=== PATIENT | male | born 1935 | race Caucasian/White ===

== ENCOUNTER 2016-09-07 11:22 | Emergency (ER) | payer OTHER ==
[~2016-09-07 11:22] MED LIST: LABETALOL IV ONE
[2016-09-07] MEDS ORDERED: QUELICIN ONE ×2 (11:24→13:06)
[2016-09-07] MEDS ORDERED: QUELICIN IV ONE (11:25)
[2016-09-07] MEDS ORDERED: AMIDATE IV ONE (11:25)
[2016-09-07] MEDS ORDERED: LABETALOL ONE (11:25)
[2016-09-07] MEDS ORDERED: DIPRIVAN 1% 100 ML ONE (11:35)
--- NOTE | 2016-09-07 11:50 | PROVIDER DOCUMENTATION ---
HPI-Critical Care - General Chief Complaint: Unresponsive Stated Complaint: DECREASE LOC Time Seen by Provider: 09/07/16 11:22 Patient arrived via EMS?: Yes Source: EMS Unable to obtain history due to:: other (pt condition, AMS) Allergies/Adverse Reactions: Allergies Allergy/AdvReac Type Severity Reaction Status Date / Time Unable to Assess Allergy Unverified 09/07/16 11:38 - History of Present Illness-Critical Care Nature of Presenting Problem: patient is a 80 y/o M that presents to the ER via EMS for unresponsiveness. 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 He then went unresponsive. EMS arrived and patient was still unresponsive. EMS attempted to intubated but patient had gag reflex. patient was given 4 mg of Narcan with no response. Patient arrives to the ER in serve distress. Severity in ED: reports: severe Onset/Duration: reports: abrupt, just prior to arrival Timing: reports: still present, constant EMS Initial Findings:: unresponsive, decreased respirations Pre-hospital Treatment: Initiated oxygen, Initiated BVM, Initiated IV fluids Associated Symptoms: denies: diarrhea, nausea, vomiting Loss of Consciousness: still comatose Review of Systems - Adult - REVIEW OF SYSTEMS - ADULT ROS:: unobtainable per condition Constitutional: reports: see HPI All Other Systems: Reviewed and Negative Past History - Adult - PAST MEDICAL HISTORY-ADULT Review of Records: reports: Nursing Assessment Review (unable to obtain due to patient condition), Medications Reviewed Physical Exam-General - PHYSICAL EXAM-ADULT Exam Limited by: patient condition Initial Vital Signs Reviewed: Yes - CONSTITUTIONAL General Appearance: severe distress, other (unresponsive) - EYES Eyes: other (pinpoint pupils) - HEAD, EARS, NOSE, MOUTH & THROAT HENMT: normocephalic/atraumatic, other (dry oral mucosa, no signs of vomit) - RESPIRATORY Respiratory: respiratory distress (severe), decreased rate - CARDIOVASCULAR Cardiovascular: no murmur, bradycardia - GASTROINTESTINAL (ABDOMEN) Abdominal Exam: soft. negative: distended - MUSCULOSKELETAL Extremity: no pedal edema, normal capillary refill - SKIN Integumentary: negative: cyanosis, ecchymosis, rash - PSYCHIATRIC Psych/Mental Status: other (unresponsive) Progress - PLAN OF CARE/RESULTS Progress/Plan/Lab Results: patient arrived to bed 13. elected to intubate patient to maintain patent airway. Patient was successful intubated x 1 attempt. patient was given 20 mg of labetol in which systolic BP is still in 230s. Patient will be transported to CT scan. He will be started on Nipride drip 1201-Patient will be switch to Cardene drip instead of Nipride drip due to cerebral hemorrhage and systolic blood pressure. Dr. Griffiths became aware of patient's bp and reviewed CT scan Vital Signs Temp Pulse Resp BP Pulse Ox 09/07/16 11:33 76 22 240/148 100 09/07/16 11:20 95.7 F L 72 12 217/124 100 Unable to Assess Allergy (Unverified 09/07/16 11:38) , I&O 09/06/16 09/07/16 09/08/16 06:59 06:59 06:59 Output Total 20 Balance -20 Laboratory 09/07/16 11:41 Specimen Type ARTERIAL Sample Site R RADIAL pH 7.47 H pCO2 31 L pO2 516 H HCO3 24.7 Base Excess -0.2 Oxyhemoglobin 96.3 ABG O2 Sat (Calculated) 20.8 ABG O2 Saturation 100.5 H ABG Carboxyhemoglobin 2.00 ABG Methemoglobin 2.2 H Mac Test YES A-a O2 Difference 158.0 Total Hemoglobin 14.3 Lactate 1.60 Blood Gas Modality AMBU BAG FiO2 % 100.0 Orders Category Date Time Status Cardiac Monitoring DIRECTED Care 09/07/16 11:26 Active Finger Stick Blood Sugar (ED) DIRECTED Care 09/07/16 11:26 Active Finger Stick Blood Sugar (ED) DIRECTED Care 09/07/16 11:27 Active Green Cath Insertion ORDERED Care 09/07/16 11:27 Active Oxygen Therapy- ED Nursing DIRECTED Care 09/07/16 11:26 Active Saline Loc NOW Care 09/07/16 11:26 Active Vital Signs Order Q15M Care 09/07/16 11:27 Active CHEST-PORTABLE [RAD] Stat Exams 09/07/16 11:26 Draft HEAD/C-SPINE W/O CONTRAST [CT] Stat Exams 09/07/16 11:27 Ordered ABG [RESP] Routine Lab 09/07/16 11:41 Completed ALCOHOL BLOOD Stat Lab 09/07/16 11:25 Received CBC WITH ELECTRONIC DIFF [HEME] Stat Lab 09/07/16 11:25 Results CK PROFILE [SP CHEM] Stat Lab 09/07/16 11:25 Received COMPREHENSIVE METABOLIC PANEL [CHEM] Stat Lab 09/07/16 11:25 Received LACTATE, PLASMA [CHEM] Stat Lab 09/07/16 11:26 Uncollected PROTIME WITH INR [COAG] Stat Lab 09/07/16 11:25 Received PTT [COAG] Stat Lab 09/07/16 11:25 Received TROPONIN T Stat Lab 09/07/16 11:25 Received URINALYSIS W/POSS RFLX CULT [URINALYSIS] Stat Lab 09/07/16 11:26 Uncollected URINE DRUG SCREEN Stat Lab 09/07/16 11:26 Uncollected Dextrose 5%-Water Inj [D5w] 250 ml Med 09/07/16 12:00 Active Nitroprusside [Nipride] 50 mg IV As Directed Nicardipine 40 mg/Ns [Cardene 40 mg/Ns] 200 ml Med 09/07/16 12:00 Active IV As Directed Pulse Oximetry Stat Oth 09/07/16 11:26 Active EKG [EKG] Stat Ther 09/07/16 11:26 Ordered 1208-Family wants patient to be a full code and to have everything done for him. - CT/MRI 1 CT Study: Cervical Spine, Head Impression: Abnormal CT Results: large cerebral bleed with shift, bleed into ventricles - CONSULTS/PCP/HOSPITALIST Notification #1 *Consult/PCP/Hospitalist*: [facility] ( ) Time Discussed: 12:11 Reason/Comments: Cerebral Hemorrhage Consult Disposition: other (Transfer to ER) Procedures - INTUBATION Time of Intubation: 11:37 Mallampati Class: 1 Intubation Method: orotracheal Equipment: ETT Tube Size (cm): 8.0 Pretreated with 100% Oxygen?: Yes Breath Sounds after Intubation: equal ETT Primary Tube Confirmation: Capnometry CO2 Change, Direct Visualization, Chest Rise and Fall Intubation Complications: no complications Vent Settings: See Respiratory Therapy Notes Departure - Departure Time of Disposition Order: 12:14 DIAGNOSIS: Cerebral hemorrhage, acute, Unresponsiveness Disposition: [place] [id number] Certified Medical Emergency: Emergent Condition: Critical - Critical Care Note Total Time (mins): 60 Critical Care Statement: This patient required my direct personal management to treat or rule out processes, the absence of which, could potentiallly result in sudden, clinically significant life or limb threatening deterioration. Attestation - Scribe Verification/Attestation Scribe:: Antony Sanz Acting as Scribe for:: Prince Rangel Scribe documention review:: This chart was documented by a scribe and accurately reflects the service the provider performed and the decisions made by the provider. Physician Attestation - Physician Attestation I, the provider, attest to the following statement:: Prince Rangel Physician documentation Attestation:: This documentation recorded by the scribe accurately reflects the service I personally performed and the decisions made by me.
[2016-09-07 11:51] LABS: ALLEN TEST YES; BE -0.2 mmoll (-3.0-3.0); BLOOD TYPE ARTERIAL; DRAW SITE R RADIAL; METHB 2.2 % (0.0-1.5); O2(CT) 20.8 mL/dL (15.0-23.0); PCO2(98.6) 31 mmHg (35-45); PO2(98.6) 516 mmHg (60-100); SAMPLE BLOOD; SAO2 100.5 % (95.0-100.0); THB 14.3 g/dL (11.5-17.4); pH(98.6) 7.47 (7.35-7.45)
[2016-09-07 11:52] LABS: MODALITY AMBU BAG
--- NOTE | 2016-09-07 11:58 | Diag Imaging Result Document ---
PROCEDURE NAME: CHEST-PORTABLE - 09/07/2016 PORTABLE CHEST: COMPARISON: 05/28/2016. FINDINGS: There is an endotracheal tube with its tip located approximately 4 cm above the delfino. The lungs are well expanded. The heart is not enlarged. The vessels are not distended. No pneumonia. No pleural effusions identified. There is a granuloma in the right base and there are calcified right hilar lymph nodes. IMPRESSION: 1. Endotracheal tube in good position. 2. Negative chest.
[2016-09-07] MEDS ORDERED: NIPRIDE 50 MG in D5W 250 ML IV SCH (12:00)
[2016-09-07] MEDS ORDERED: NS IV SCH (12:00)
[2016-09-07] MEDS ORDERED: CARDENE IV SCH (12:00)
[2016-09-07 12:07] LABS: MANUAL DIFF NEEDED? NO
--- NOTE | 2016-09-07 12:32 | Diag Imaging Result Document ---
PROCEDURE NAME: HEAD/C-SPINE W/O CONTRAST - 09/07/2016 CT BRAIN AND CERVICAL SPINE WITHOUT CONTRAST: CT BRAIN WITHOUT: FINDINGS: There is a large parenchymal hemorrhage which appears to be centered in the left cerebellum measuring approximately 3.9 x 6.5 cm. This has bled into the ventricular system. There is mild hydrocephalus as well as atrophy. Mild microvascular ischemic changes. No skull fracture. No sinus opacification. IMPRESSION: Large left cerebellar parenchymal hemorrhage with extension into the ventricular system with mild hydrocephalus. A preliminary report was immediately called to Dr. Rangel in the Emergency Room at 12:[address] CERVICAL SPINE WITHOUT CONTRAST: FINDINGS: There is mild scoliosis. Moderate degenerative bone spurring throughout the cervical spine. No subluxation. No fracture. IMPRESSION: No acute bony injury.
[2016-09-07 12:38] LABS: URINE CULTURE NEEDED? NO; URINE MICRO REVIEW NEEDED? NO; URINE SOURCE CATH
[2016-09-07 12:44] LABS: EOS# 0.07 X1000 (0.0-0.7); EOS% 1.1 % (0.0-10.0); HEMATOCRIT 39.7 % (42.0-52.0); HEMOGLOBIN 13.6 g/dL (14.0-18.0); LYMPH% 15.1 % (20.5-51.1); MCH 29.2 PG (27-31); MCHC 34.3 g/dL (33-37); MCV 85.2 FL (81-99); MONO# 0.39 X1000 (0.11-0.59); MONO% 5.9 % (1.7-9.3); MPV 9.7 FL (7.4-10.4); NEUT% 77.9 % (42.2-75.2); PLT 161 X1000 (130-400); RBC 4.66 XMIL (4.7-6.1)
[2016-09-07 12:47] LABS: BILIRUBIN URINE NEGATIVE (NEGATIVE); BLOOD URINE NEGATIVE (NEGATIVE); COLOR STRAW; GLUCOSE URINE 200 mg/dL (NEGATIVE); LEUKOCYTES URINE NEGATIVE (NEGATIVE); NITRITE URINE NEGATIVE (NEGATIVE); PH URINE 7.5; PROTEIN URINE 50 mg/dL (NEGATIVE); SP GRAVITY URINE 1.009; TURBIDITY URINE CLEAR (CLEAR); UROBILINOGEN URINE NORMAL (NORMAL)
[2016-09-07 12:49] LABS: UR EPITHELIAL CELLS <10 /HPF (<10); URINE BACTERIA NEGATIVE /HPF; URINE RBC <10 /HPF (<10); URINE WBC <10 /HPF (<10)
[2016-09-07 12:51] VITALS: BP 97/56
[2016-09-07 12:55] LABS: UR AMPHETAMINES QUAL NONE DETECTED (NONE DETECT); UR BARBITUATES QUAL NONE DETECTED (NONE DETECT); UR BENZODIAZEPIN QUAL NONE DETECTED (NONE DETECT); UR CANNABINOIDS QUAL NONE DETECTED (NONE DETECT); UR COCAINE QUAL NONE DETECTED (NONE DETECT); UR METHADONE QUAL NONE DETECTED (NONE DETECT); UR OPIATES QUAL NONE DETECTED (NONE DETECT); UR OXYCODONE QUAL NONE DETECTED (NONE DETECT); UR PCP QUAL NONE DETECTED (NONE DETECT)
[2016-09-07 12:56] LABS: INR 1.12; PROTIME 11.9 Seconds (9.2-11.7); PTT 25.7 Seconds (22.0-36.0)
[2016-09-07 13:01] LABS: AGAP 14; ALBUMIN 3.6 g/dL (3.5-5.0); ALKALINE PHOSPHATASE 76 U/L (32-122); BUN 18 mg/dL (8-22); CALCIUM 8.8 mg/dL (8.8-10.2); CHLORIDE 102 mmol/L (98-107); CK PROFILE 104 U/L (24-204); COSMO 281; GOT 16 U/L (10-34); GPT 8 U/L (10-44); POTASSIUM 4.3 mmol/L (3.5-5.1); SODIUM 138 mmol/L (136-145); TCO2 22 mmol/L (25-35); TOTAL BILIRUBIN 0.51 mg/dL (0.20-1.00); TOTAL PROTEIN 6.8 g/dL (6.3-8.3)
[2016-09-07] MEDS ORDERED: AMIDATE ONE (13:06)
[2016-09-07] MEDS ORDERED: NS 2,000 ML ONE (13:06)
[2016-09-07] MEDS ORDERED: DIPRIVAN 1% 100 ML IV SCH (13:15)
== END 2016-09-07 12:49 | disposition short-term general hospital (02) ==
LOC: EDBD → ED 11:22
DX: I61.4 Nontraumatic intracerebral hemorrhage in cerebellum (principal); R11.10 Vomiting, unspecified; R00.1 Bradycardia, unspecified
CPT/HCPCS: 31500; 70450; 71010; 72125; 80053; 81001; 82550; 82805; 83605; 84484; 85025; 85610; 85730; 89220; 93005; 94762; 96365; 96368; 96375; G0480; J0330; J7030; J7060; 80320; 80324; 80345; 80346; 80349; 80353; 80358; 80361; 80365; 83992; 99285-25